=== PATIENT | female | born 1975 | race Caucasian/White ===

== ENCOUNTER 2017-03-04 12:20 | Day surgery (SDC) | payer BC ==
[2017-03-02 12:57] LABS: PFA (COL/EPI) 137 SEC (72-180)
[2017-03-02 13:02] LABS: BASOPHILS 0.2 %; BASOPHILS ABSOLUTE 0.01 10/3/uL (0.0-0.16); EOSINOPHILS 2.5 %; EOSINOPHILS ABSOLUTE 0.12 10/3/uL (0.0-0.53); HEMATOCRIT 34.5 % (36.0-48.0); HEMOGLOBIN 11.2 g/dL (12.0-16.0); IMMATURE GRANULOCYTES 0.2 %; IMMATURE GRANULOCYTES ABSOLUTE 0.01 10/3/uL (0.0-0.11); LYMPHOCYTES 18.3 %; LYMPHOCYTES ABSOLUTE 0.86 10/3/uL (0.67-4.30); MANUAL DIFF NO %; MEAN CORPUS HGB CONC 32.5 g/dL (32.0-36.0); MEAN CORPUSCULAR HEMOGLOB 27.3 pg (26.0-34.0); MEAN CORPUSCULAR VOLUME 84.1 fL (80-100); MEAN PLATELET VOLUME 8.4 fL (9.2-13.0); MONOCYTES 6.2 %; MONOCYTES ABSOLUTE 0.29 10/3/uL (0.21-1.20); NEUTROPHILS 72.6 %; NEUTROPHILS ABSOLUTE 3.42 10/3/uL (2.02-8.40); PLATELET COUNT 349 10/3/uL (150-400); RBC DISTRIBUTION WIDTH 13.1 % (12.0-16.0); WHITE BLOOD CELLS 4.7 10/3/uL (4.5-10.5)
[2017-03-02 13:08] LABS: PARTIAL THROMBO TIME 29.5 SEC (22.5-37.2); PROTIME (NOT ORD) 13.1 SEC (12.0-14.5)
[~2017-03-04] VITALS: Ht 152.4 cm; Wt 56.2 kg
--- NOTE | ~2017-03-04 | OP ---
Record Of Operation [facility] [address] [place]. [address] NAME: BELLE JACKSON : 75 STATUS : [facility]#: [id number] AGE: 41 ADM/REG DATE : 03/04/17 MR#: [id number] REPORT SERV DATE: 03/06/17 DICTATED BY: LOUIS MIJARES DATE: 03/06/17 REPORT STATUS : Draft TRANSCRIBED BY: LIZY DATE: 03/06/17 DATE OF PROCEDURE: 03/04/2017 PREOPERATIVE DIAGNOSIS: Surgical absence of the right breast, history of breast cancer, late effects of radiation, seroma, and implant contracture. POSTOPERATIVE DIAGNOSIS: Surgical absence of the right breast, history of breast cancer, late effects of radiation, seroma, and implant contracture. PROCEDURE: Latissimus dorsi tissue expansion reconstruction. INDICATIONS AND FINDINGS OF THE PROCEDURE: This middle-aged female is status post breast cancer management with immediate reconstruction and tissue pastry chef and implant valve. 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 She is appropriate for the above-described operative intervention. DETAILS OF THE PROCEDURE: The patient was brought to the operating room and after adequate general anesthesia was achieved, she was placed in to the left lateral decubitus position and prepped and draped in the usual sterile fashion for the above-described procedure. Incision was then made in the back and dissection carried down to the level of the Lat dorsi. The latissimus dorsi was then circumferentially dissected. She was then packed with Hibiclens solution soaked gauzes and our attention was turned anteriorly. The inframammary crease incision was excised and opened completely. Her formal implant was removed. Cultures were obtained. Circumferential capsulotomy was then carried out. Dissection was carried into the axilla. With adequate dissection, the latissimus dorsi was then passed from the posterior into the anterior dissection. Both pantoja were then infiltrated with ropivacaine. Posteriorly a progressive tension closure was affected over a 15-Khmer drain. Anteriorly the latissimus dorsi was inset around the mastectomy field. A 475 tissue pastry chef was then placed behind the muscle, filled to 200. The skin envelope was then redraped over the anterior surface of the latissimus dorsi musculature and inset with multiple layers of Vicryl and Monocryl over a 15-Khmer drain. She was returned to the supine position, cleansed with peroxide, and placed into a dry sterile dressing circumferential Shahzad wrap. She was remanded to the recovery room in stable condition. All sponge and needle counts were correct. RAFAT/LIZY Louis Mijares M.D. / [id number] CC: Record Of Operation [address] [address] NAME: BELLE JACKSON : 75 STATUS : [facility] PAT#: [id number] AGE: 41 ADM/REG DATE : 03/04/17 MR#: [id number] REPORT SERV DATE: 03/06/17 DICTATED BY: LOUIS MIJARES DATE: 03/06/17 REPORT STATUS : Draft TRANSCRIBED BY: LIZY DATE: 03/06/17 Latesha Garcia
[~2017-03-04 12:20] MED LIST: 8 HOUR650 MG PO; ACET500CAP PO; ALEVE220 MG PO; AT25 PO; BACDS PO; BIRTH CONTROL PILL PO; FLEX PO; K500 PO; LEXAPRO10 PO; MIRALAX POWDER1 PKT PO; MOBIC15 MG PO; NEUR300 PO; NIFEDIPINE OINTMENT TOP; PERCOCET 10/3251 TAB PO; PERCOCET1 TA2 PO; PROZAC PO; T3 PO; X5 PO
== END 2017-03-04 18:42 | disposition home or self-care (01) ==
LOC: SDC 12:20
PROVIDERS: Surgery Surgery of the Hand
PROC: 0HPT0NZ Removal of Tissue Expander from Right Breast, Open Approach (ICD-10-PCS; 2017-03-04)
PROC: 0HHT0NZ Insertion of Tissue Expander into Right Breast, Open Approach (ICD-10-PCS; 2017-03-04)
PROC: 0HRT075 Replacement of Right Breast using Latissimus Dorsi Myocutaneous Flap, Open Approach (ICD-10-PCS; principal; 2017-03-04 13:45)
DX: T85.44XA Capsular contracture of breast implant, initial encounter (principal); F41.8 Other specified anxiety disorders; G43.909 Migraine, unspecified, not intractable, without status migrainosus; Z90.710 Acquired absence of both cervix and uterus; Z90.13 Acquired absence of bilateral breasts and nipples; Z85.3 Personal history of malignant neoplasm of breast; Z98.890 Other specified postprocedural states; Z79.1 Long term (current) use of non-steroidal anti-inflammatories (NSAID); Z79.2 Long term (current) use of antibiotics; Z79.899 Other long term (current) drug therapy
CPT/HCPCS: 85025; 85576; 85610; 85730; 87015; 87070; 87075; 87077; 87102; 87116; 87186; 87205; A9270-GY; C1769; C1789; J0690; J1170; J2250; J2405; J2550; J2795; J3010